=== PATIENT | male | born 1945 | race Caucasian/White ===

== ENCOUNTER → 2018-03-19 | Outpatient (CLI) | payer OTHER ==
[~2018-03-19] MED LIST: ASPIRIN EC81 M1 PO; BISOPROLOL FUM2.5 MG PO; DEPO-TESTO100 MG/1 M; NORVASC 5 MG TAB5 MG PO; [UNRECOGNIZED DRUG - REMARK]
[2018-03-19 14:05] LABS: CALCIUM 8.9 mg/dL (8.5-10.1); POTASSIUM 3.8 mmol/L (3.5-5.1)
== END ==
LOC: M.LAB 13:23
PROVIDERS: Internal Medicine Cardiovascular Disease
DX: R60.9 Edema, unspecified (principal)